=== PATIENT | male | born 1985 ===

== ENCOUNTER 2020-03-18 08:55 | Emergency (ER) | payer OTHER ==
[2020-03-18 10:53] LABS: #Basophils 0.1 thou/uL (0.0-0.2); #Eosinphils 0.2 thou/uL (0.0-0.7); #Monocytes 1.5 thou/uL (0.11-0.59); #Neutrophils 5.6 thou/uL (1.40-6.50); %Basophils 0.7 % (0.0-1.0); %Eosinophils 1.5 % (0.0-10.0); %Lymphocytes 35.1 % (21.0-51.0); %Monocytes 12.8 % (0.0-10.0); %Neutrophils 49.9 % (42.0-75.0); Hemoglobin 14.4 g/dL (14.0-18.0); Mean Corpuscular HGB CONC 34.1 g/dL (32.0-36.0); Mean Corpuscular Hemoglobin 30.3 pg (27.0-31.0); Mean Corpuscular Volume 88.6 fL (78.0-98.0); Mean Platelet Volume 7.5 fL (7.4-10.4); Platelet Count 300 thou/uL (130-400); RBC Distribution Width 10.9 % (11.5-14.5); Red Blood Cell (RBC) Count 4.76 mill/uL (4.70-6.10); White Blood Cell (WBC) Count 11.3 thou/uL (4.8-10.8)
--- NOTE | 2020-03-18 11:08 | RAD ---
EXAM: Single view of the chest HISTORY: Fever and headache COMPARISON: None FINDINGS: Single view of the chest shows a normal sized cardiomediastinal silhouette. There is a subt le infiltrate along the mid left lung The bones are unremarkable IMPRESSION: Left pulmonary infiltrate
[2020-03-18] MEDS ORDERED: Ondansetron PF 4 MG/2 ML Vial ONE (11:12)
[2020-03-18] MEDS ORDERED: diphenhydrAMINE 50 MG/ML VIAL ONE (11:12)
[2020-03-18] MEDS ORDERED: diphenhydrAMINE 12.5 MG/5 ML UDCUP ONE (11:12)
[2020-03-18] MEDS ORDERED: Metoclopramide HCl 10 MG/2 ML VIAL ONE (11:12)
--- NOTE | 2020-03-18 11:14 | CT ---
EXAM: CT brain without contrast HISTORY: Fever and headache COMPARISON: None TECHNIQUE: Multiple contiguous axial images were obtained and a CT of the brain without contrast. FINDINGS: The brain is normal in morphology and attenuation without focal lesions or confluent areas of infarction. There is no evidence of hydrocephalus, intracranial hemorrhage, or extra-axial fluid collection. The calvarium and overlying soft tissues are unremarkable. The visualized paranasal sinuses and masto id air cells are well aerated. IMPRESSION: No evidence of acute intracranial abnormality
[2020-03-18 11:24] LABS: ALT (SGPT) 50 U/L (8-55); AST (SGOT) 26 U/L (5-34); Albumin 4.2 g/dL (3.5-5.0); Alkaline Phosphatase 73 U/L (40-110); Anion Gap 11 mmol/L (10-20); BUN (Urea Nitrogen) 8 mg/dL (8.9-20.6); Bilirubin, Total 0.3 mg/dL (0.2-1.2); Calc. Creatinine Clearance 0 mL/min (70-130); Calcium 9.3 mg/dL (7.8-10.44); Carbon Dioxide 29 mmol/L (22-29); Chloride 103 mmol/L (98-107); Estimated GFR-MDRD Greater than 90; Globulin 3.1 g/dL (2.4-3.5); Glucose 90 mg/dL (70-105); Potassium 4.1 mmol/L (3.5-5.1); Protein, Total 7.3 g/dL (6.0-8.3); Sodium 139 mmol/L (136-145)
[2020-03-18] MEDS ORDERED: cefTRIAXone\\ROCEPHIN 2 GM VIAL ONE (12:10)
[2020-03-18] MEDS ORDERED: Azithromycin 250 MG TAB ONE (12:10)
[2020-03-18] MEDS ORDERED: Dexamethasone 4 mg/ml Vial ONE (12:10)
== END 2020-03-18 13:46 | disposition home or self-care (01) ==
LOC: ERS 08:55
DX: J18.9 Pneumonia, unspecified organism (principal); R51 Headache; Z20.828 Contact with and (suspected) exposure to other viral communicable diseases; F17.200 Nicotine dependence, unspecified, uncomplicated
CPT/HCPCS: 36415; 70450; 71045; 80053; 83605; 85025; 96365; 96367; 96375; J0696; J1100; J1200; J2405; J2765; Q0163